=== PATIENT | female | born 1985 | race Caucasian/White ===

== ENCOUNTER 2017-04-20 05:43 | Day surgery (SDC) | payer OTHER ==
[2017-04-14 09:56] LABS: HEMATOCRIT 40.4 % (36.0-47.0); HEMOGLOBIN 14.2 g/dL (12.0-15.5); HGB HCT DIFFERENCE 2.2; MEAN CORPUSCULAR HEMOGLOBIN 34.9 pg (27.0-33.4); MEAN CORPUSCULAR VOLUME 100 fl (80-97); RED BLOOD COUNT 4.06 10^6/uL (3.72-5.28); RED CELL DISTRIBUTION WIDTH 12.2 % (11.5-14.0); WHITE BLOOD COUNT 4.4 10^3/uL (4.0-10.5)
[2017-04-14 10:10] LABS: APPEARANCE,URINE SLIGHTLY-CLOUDY; BILIRUBIN,URINE NEGATIVE (NEGATIVE); GLUCOSE, URINE NEGATIVE (NEGATIVE); KETONES,URINE NEGATIVE (NEGATIVE); LEUKOCYTE ESTERASE,URINE NEGATIVE (NEGATIVE); NITRITE,URINE NEGATIVE (NEGATIVE); PROTEIN,URINE NEGATIVE (NEGATIVE); URINE SPECIFIC GRAVITY 1.004; UROBILINOGEN,URINE NEGATIVE mg/dL (<2.0)
[2017-04-14 10:16] LABS: ALANINE AMINOTRANSFERASE 24 U/L (9-52); ALBUMIN 4.2 g/dL (3.5-5.0); ALKALINE PHOSPHATASE 57 U/L (38-126); ANION GAP 8 (5-19); ASPARTATE AMINO TRANSFERASE 18 U/L (14-36); BILIRUBIN,DIRECT 0.3 mg/dL (0.0-0.4); BILIRUBIN,TOTAL 0.3 mg/dL (0.2-1.3); BLOOD UREA NITROGEN 17 mg/dL (7-20); CALCIUM 9.2 mg/dL (8.4-10.2); CARBON DIOXIDE 30 mmol/L (22-30); CHLORIDE 100 mmol/L (98-107); CREATININE RESULT 0.88 mg/dL (0.52-1.25); GLUCOSE 73 mg/dL (75-110); POTASSIUM 4.4 mmol/L (3.6-5.0); SODIUM 137.7 mmol/L (137-145); TOTAL PROTEIN 6.7 g/dL (6.3-8.2)
[~2017-04-20 05:43] MED LIST: CEFAZOLIN 2 GM/D5W RTU 2 GM/50 ML RTUPB IV PRN; GABAPENTIN 400 MG CAPSULE PO PRN; LACTATED RINGERS 1000 ML IV PRN; LIDOCAINE 0.5% INJ-PF (5 MG/ML) 50 ML SDV SUBCUT PRN; RINGERS SOLUTION,LACTATED 1,000 ML IV PRN
[2017-04-20] MEDS ORDERED: BUPIVACAINE HCL 0.25 % INJ/PF (2.5 MG/1 ML) 30 ML VIAL ONE (06:36)
[2017-04-20] MEDS ORDERED: FENTANYL CITRATE INJ/PF 100 MCG/2 ML AMPUL ONE (07:22)
[2017-04-20] MEDS ORDERED: MIDAZOLAM 2 MG/2 ML INJ ONE (07:22)
[2017-04-20] MEDS ORDERED: IBUPROFEN INJ 800 MG/8 ML VIAL IV ONE (07:23)
[2017-04-20] MEDS ORDERED: EPHEDRINE SULFATE INJ 50 MG/1 ML AMPULE ONE (07:23)
[2017-04-20] MEDS ORDERED: ACETAMINOPHEN 100 ML IV ONE (07:23)
[2017-04-20] MEDS ORDERED: PROPOFOL INJ 200 MG/20 ML VIAL IV ONE (07:23)
[2017-04-20] MEDS ORDERED: HYDROMORPHONE HCL INJ/PF 2 MG/ML AMPULE ONE (07:24)
[2017-04-20] MEDS ORDERED: MEPERIDINE HCL/PF INJ 25 MG/1 ML DISP.SYRIN IV PRN (09:08)
[2017-04-20] MEDS ORDERED: MORPHINE SULFATE 10 MG/ML INJ IV PRN (09:08)
[2017-04-20] MEDS ORDERED: OXYCODONE-ACETAMINOPHEN 5-325 MG TABLET PO PRN ×4 (09:08→11:45)
[2017-04-20] MEDS ORDERED: DIPHENHYDRAMINE HCL 50 MG/ML VIAL IV PRN (09:08)
[2017-04-20] MEDS ORDERED: FENTANYL CITRATE INJ/PF 100 MCG/2 ML AMPUL IV PRN ×3 (09:08)
[2017-04-20] MEDS ORDERED: PROMETHAZINE HCL INJ 25 MG/1 ML VIAL IV PRN ×2 (09:08)
[2017-04-20] MEDS ORDERED: ONDANSETRON HCL INJ/PF 4 MG/2 ML SDV IV PRN ×3 (09:08→11:45)
[2017-04-20] MEDS: FENTANYL CITRATE INJ/PF 100 MCG/2 ML AMPUL ONE ×2 (10:14→10:22)
[2017-04-20] MEDS ORDERED: CLONAZEPAM 1 MG TABLET PO PRN (11:46)
[2017-04-20] MEDS ORDERED: TRAZODONE HCL 50 MG TABLET PO PRN (11:46)
[2017-04-20] MEDS ORDERED: DEXAMETHASONE SOD PHOSPHATE INJ 4 MG/1 ML VIAL ONE (12:48)
[2017-04-20] MEDS ORDERED: ONDANSETRON HCL INJ/PF 4 MG/2 ML SDV ONE (12:48)
[2017-04-20] MEDS ORDERED: ROCURONIUM BROMIDE INJ 50 MG/5 ML VIAL IV ONE (12:48)
[2017-04-20] MEDS ORDERED: LIDOCAINE 2% INJ-PF (20 MG/ML) 10 ML AMPUL ONE (12:48)
[2017-04-20] MEDS ORDERED: METOCLOPRAMIDE HCL INJ/PF 10 MG/2 ML SDV ONE (12:48)
--- NOTE | 2017-04-20 12:59 | PDOC DISCHARGE SUMMARY ---
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 ) Discharge Diet: As Tolerated, Regular Respiratory Treatments at Home: Deep Breathing/Coughing Discharge Activity: Activity As Tolerated, Balance Activity w/Rest, Pelvic Rest , Slowly Increase Activity, No tub bath - you may shower Home Care Assistance: None Needed Report the Following to Your Physician Immediately: Shortness of Breath, Vomiting, Increase in Pain, Fever over 101 Degrees, Unusual Bleeding, Redness, Swelling, Warmth, Increased Vaginal Bleed
[2017-04-20 14:26] VITALS: BP 113/65
[2017-04-20] MEDS ORDERED: BUSPIRONE HCL PO SCH (18:00)
[2017-04-21] MEDS ORDERED: VENLAFAXINE HCL 75 MG CAP.SR.24H PO SCH (10:00)
[2017-04-21] MEDS ORDERED: VENLAFAXINE HCL PO SCH (10:00)
--- NOTE | 2017-05-05 16:18 | OPERATIVE REPORT E ---
Operative Report NAME: ALISHA MILLER : 1985 AGE: 31Y DATE OF SURGERY: 04/20/2017 ROOM: 207 PREOPERATIVE DIAGNOSIS: Genetic susceptibility to malignancy of the endometrium and uterus. POSTOPERATIVE DIAGNOSIS: Genetic susceptibility to malignancy of the endometrium and uterus. OPERATION: Robotic-assisted total laparoscopic hysterectomy and bilateral salpingectomy. SURGEON: KRISTINE BARAKAT M.D. PRODUCTION OPERATIONS INSPECTOR: DR. NEHEMIAH FUNK. ANESTHESIA: General. COMPLICATIONS: None. ESTIMATED BLOOD LOSS: 150 mL. URINE OUTPUT: Clear at the end of the procedure. TISSUE REMOVED OR ALTERED: Specimens: Uterus with cervix and bilateral fallopian tubes. FINDINGS: Normal-appearing uterus and fallopian tubes and ovaries. INDICATIONS: This is a 31-year-old female with a strong genetic history of uterine and endometrial cancer. She desires surgical management for prophylaxis. She has been seen by a genetic counselor as well. After discussing the risks, benefits, and alternatives including but not limited to observation, the patient elected to have the above prophylactic procedure. PROCEDURE: After the patient was properly consented, she was taken to the operating room where general anesthesia was introduced with endotracheal intubation. She was transferred to a dorsal lithotomy position using adjustable Balta stirrups and prepped and draped in the usual sterile fashion. A surgical timeout was held. We began with placement of the V-care uterine manipulator and a Palacios catheter into the bladder, then gloves were changed and I proceeded above where 0.25% Marcaine local anesthetic was placed supraumbilically. A 12 mm skin incision was made with the scalpel followed by a Veress needle introduced into the peritoneal cavity with correct placement ascertained by a drop in CO2 pressure to 1 mmHg. The pneumoperitoneum was established to a pressure of 15 mmHg, and the Veress needle was removed. A 12 mm bladeless trocar was advanced into the pneumoperitoneum, and immediate visualization with the camera demonstrated an atraumatic entry as well as the above findings. We subsequently placed 2 right and 1 left lateral port, all 8 mm in size following the typical routine of local anesthetic followed by a skin incision with a scalpel followed by placement of the port under direct visualization. With all the ports in place, the patient was placed in steep Trendelenburg position. The robot was then docked, and a scrub down proceeded to the robotic console. Pelvic anatomy was again inspected and the findings noted above. The ureters were identified by peristalsis in their usual course at the pelvic brim bilaterally. Dissection was begun on the right side using the fenestrated bipolar graspers and the vessel feeler. The round ligament on the right was cauterized and transected. Next, a broad ligament was opened and dissected inferiorly and anteriorly to create the bladder flap which was reduced inferiorly. Next, the fallopian tube was dissected from the tubo-ovarian ligament, and the ovary was dissected from the uterus through the utero-ovarian ligament. This dissection was continued along the lateral portion of the uterine body to connect with the previous transected round ligament. The broad ligament was further opened, and the uterus artery was dissected out, identified, cauterized, and transected at the area next to the uterine lower segment. Then, carefully hugging the uterus, the dissection was continued along the side of the cervix to the top of the coring. The same dissection was completed on the left side. The areas of the dissection were noted to be hemostatic. Next, the edge of the V-care cervical cap was identified, and the vessel feeler was switched out with monopolar scissors. The colpotomy was initiated with monopolar cautery and carried around circumferentially until the specimen was free and pulled through the vagina. The vaginal cuff was closed with a running V-lock 3-0 Monocryl suture incorporating the uterosacral pedicles for support. The pelvis was irrigated copiously, and hemostasis was noted to be excellent. FloSeal hemostatic agent was applied to the area over the vaginal cuff and dissected broad ligaments. The abdomen was deflated. The robot was undocked, and all the instruments and ports were removed. The patient was taken out of Trendelenburg. The 12 mm port site fascia was closed with #0-Vicryl suture, and the skin of the 8 and 12 mm ports were closed with 4-0 Monocryl in a subcuticular fashion, and a Dermabond dressing was applied. Anesthesia was reversed. Sponge, lap, and needle counts were correct at the end of the procedure, and the patient was taken to the PACU in stable condition. DICTATING PHYSICIAN: KRISTINE BARAKAT M.D. [id number] Y#: [id number] ID: [id number] JOB#: [id number] ACCT: [id number] cc:KRISTINE BARAKAT M.D. >
== END 2017-04-20 15:50 | disposition home or self-care (01) ==
LOC: OROUT 05:43 → 2N 11:31 → OROUT 15:50
PROVIDERS: ATTEND Obstetrics & Gynecology
PROC: 0UTC4ZZ Resection of Cervix, Percutaneous Endoscopic Approach (ICD-10-PCS; 2017-04-20)
PROC: 0UT74ZZ Resection of Bilateral Fallopian Tubes, Percutaneous Endoscopic Approach (ICD-10-PCS; 2017-04-20)
PROC: 8E0W4CZ Robotic Assisted Procedure of Trunk Region, Percutaneous Endoscopic Approach (ICD-10-PCS; 2017-04-20)
PROC: 0UT94ZZ Resection of Uterus, Percutaneous Endoscopic Approach (ICD-10-PCS; principal; 2017-04-20 07:30)
DX: Z15.04 Genetic susceptibility to malignant neoplasm of endometrium (principal); N88.8 Other specified noninflammatory disorders of cervix uteri; F41.9 Anxiety disorder, unspecified; Z79.899 Other long term (current) drug therapy
CPT/HCPCS: 58571; S2900; 36415; 80053; 81001; 81025; 840; 85027; 86850; 86900; 86901; 88307; J0131; J0690; J1100; J1170; J1741; J2250; J2405; J2704; J2765; J3010; J3490